=== PATIENT | male | born 1975 | race Caucasian/White ===

== ENCOUNTER 2018-06-23 03:55 | Emergency (ER) | payer OTHER ==
[~2018-06-23] VITALS: Ht 177.8 cm; Wt 103.9 kg
[2018-06-23 03:59] VITALS: BP 156/94
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
--- NOTE | 2018-06-23 04:27 | NUR ---
DR. NEWELL AT BEDSIDE EVALUATING PT.
[2018-06-23] MEDS ORDERED: MORPHINE SULFATE 4 MG/ML SYR IVP ONE (04:30)
[2018-06-23] MEDS ORDERED: ONDANSETRON 4 MG/2 ML VIAL IVP ONE (04:30)
[2018-06-23] MEDS ORDERED: NACL 0.9% 1,000 ML IV ONE (04:30)
[2018-06-23 05:01] LABS: EOSINOPHILS # (AUTO) 0.2 K/uL (0-0.4); HEMATOCRIT 41.8 % (36-52); HEMOGLOBIN 14.2 g/dL (12.0-18.0); LYMPHOCYTES # (AUTO) 1.3 K/uL (2.0-11.5); LYMPHOCYTES % (AUTO) 26.8 % (20.5-51.1); MEAN CORPUSCULAR HEMOGLOBIN 31 pg (27-31); MEAN CORPUSCULAR HGB CONC 34 g/dL (33-37); MEAN CORPUSCULAR VOLUME 92.4 fL (80-94); MONOCYTES # (AUTO) 0.6 K/uL (0.8-1.0); NEUTROPHILS # (AUTO) 2.7 K/uL (1.8-7.7); NEUTROPHILS % (AUTO) 56.2 % (42.2-75.2); PLATELET COUNT (AUTO) 187 K/uL (140-450); RED BLOOD CELL COUNT(AUTO) 4.52 MIL/uL (4.20-6.10); RED CELL DISTRIBUTION WIDTH 13.5 % (11.6-13.7); WHITE BLOOD COUNT (AUTO) 4.8 K/uL (4.8-10.8)
[2018-06-23 05:15] LABS: ALBUMIN 3.8 g/dL (3.4-5.0); ANION GAP 13.3 (8-16); CARBON DIOXIDE 26.5 mmol/L (21-32); POTASSIUM 3.8 mmol/L (3.5-5.1); TOTAL BILIRUBIN 0.4 mg/dL (0.0-1.0)
[2018-06-23 05:18] LABS: PROTHROMBIN TIME 10.6 secs (10.8-13.4)
--- NOTE | 2018-06-23 05:19 | NUR ---
PT STATES "TOO WEAK" TO AMBULATE OR TO TRANSFER AFTER MORPHINE IVP. UNABLE TO PROVIDE URINE AT THIS TIME D/T URINATING ALREADY BEFORE TRIAGE. MADE AWARE.
--- NOTE | 2018-06-23 05:42 | NUR ---
PT TAKEN TO CT
[2018-06-23 05:51] LABS: APPEARANCE,URINE CLEAR (CLEAR); BILIRUBIN,URINE NEGATIVE (NEGATIVE); BLOOD, URINE NEGATIVE (NEGATIVE); COLOR,URINE YELLOW (YELLOW); LEUKOCYTE ESTERASE ,URINE NEGATIVE (NEGATIVE); NITRITE, URINE NEGATIVE (NEGATIVE); UGLUCOSE NEGATIVE (NEGATIVE)
--- NOTE | 2018-06-23 06:02 | NUR ---
PT RETURNED FROM CT AT THIS TIME
[2018-06-23 06:50] VITALS: BP 156/94
--- NOTE | 2018-06-23 06:52 | NUR ---
Patient discharged with v/s stable. Written and verbal after care instructions given and explained. Patient alert, oriented and verbalized understanding of instructions. Ambulatory with steady gait. All questions addressed prior to discharge. ID band removed. Patient advised to follow up with PMD. Rx of COLACE 100MG, NAPROSYN 500MG given. Patient educated on indication of medication including possible reaction and side effects. Opportunity to ask questions provided and answered.
== END 2018-06-23 06:52 | disposition home or self-care (01) ==
LOC: MED 03:55
DX: R10.32 Left lower quadrant pain (principal); M54.2 Cervicalgia; R19.7 Diarrhea, unspecified; Z90.49 Acquired absence of other specified parts of digestive tract
CPT/HCPCS: 36415; 74176; 80053; 81003; 83690; 85025; 85610; 85651; 85730; 86140; 86886; 86900; 86901; 87040; 96374; 96375; 99284; J2270; J2405; J7030

== ENCOUNTER 2019-04-20 19:47 | Emergency (ER) | payer OTHER ==
[~2019-04-20] VITALS: Ht 170.2 cm; Wt 107.0 kg
[2019-04-20 20:24] VITALS: BP 155/118
[2019-04-20] MEDS ORDERED: SODIUM CHLORIDE FLUSH 10 ML SYR IVF STA (20:30)
[2019-04-20] MEDS ORDERED: NITROGLYCERIN 0.4 MG TAB SL STA (20:30)
--- NOTE | 2019-04-20 20:52 | NUR ---
NITRO CHEST PAIN REASSESSMENT AFTER FIRST DOSE : 06/22
--- NOTE | 2019-04-20 20:58 | NUR ---
Dr. Fairchild examining patient.
[2019-04-20] MEDS ORDERED: ONDANSETRON 4 MG/2 ML VIAL IVP ONE (21:10)
[2019-04-20] MEDS ORDERED: MORPHINE SULFATE 4 MG/ML SYR IVP ONE (21:10)
--- NOTE | 2019-04-20 21:10 | NUR ---
43 YEAR OLD MALE COMPLAINS OF ON/OFF SHARP 9/10 RIGHT SIDED CHEST PAIN THAT DOES NOT RADIATE X 1WEEK WHEN HE ARRIVED TO THE ER. PATIENT STATES THAT THE CHEST PAIN IS MUCH MORE REDUCED AFTER MEDICATIONS, AT A 3/10 PAIN NOW. PATIENT DENIED NAUSEA, VOMITTING, AND SHORTNESS OF BREATHE. PATIENT ALERT AND ORIENTED, BREATHING EVEN AND UNLABORED, SKIN WARM AND DRY. PATIENT ON 2L O2 NC, 100% O2 SATURATION, HR 87 NSR, RR 15, BP 147/95. BED IN LOWEST POSITION, LOCKED, BED RAIL UPX1. PMH - DENIES MEDICATIONS - NONE ALLERGIES - NKA
[2019-04-20] MEDS ORDERED: NACL 0.9% 1,000 ML IV ONE (21:15)
[2019-04-20 21:45] LABS: BASOPHILS # (AUTO) 0.1 K/uL (0.00-0.22); BASOPHILS % (AUTO) 1.2 % (0.0-2.0); EOSINOPHILS # (AUTO) 0.1 K/uL (0-0.4); EOSINOPHILS % (AUTO) 2.3 % (0.0-4.0); HEMATOCRIT 46.5 % (36-52); HEMOGLOBIN 15.7 g/dL (12.0-18.0); LYMPHOCYTES # (AUTO) 1.1 K/uL (2.0-11.5); MEAN CORPUSCULAR HEMOGLOBIN 32 pg (27-31); MEAN CORPUSCULAR HGB CONC 34 g/dL (33-37); MEAN CORPUSCULAR VOLUME 95.8 fL (80-94); MONOCYTES # (AUTO) 0.6 K/uL (0.8-1.0); MONOCYTES % (AUTO) 12.7 % (1.7-9.3); NEUTROPHILS # (AUTO) 2.9 K/uL (1.8-7.7); NEUTROPHILS % (AUTO) 60.8 % (42.2-75.2); PLATELET COUNT (AUTO) 209 K/uL (140-450); RED BLOOD CELL COUNT(AUTO) 4.85 MIL/uL (4.20-6.10); RED CELL DISTRIBUTION WIDTH 13.9 % (11.6-13.7); WHITE BLOOD COUNT (AUTO) 4.8 K/uL (4.8-10.8)
--- NOTE | 2019-04-20 21:46 | NUR ---
PATIENT ALERT AND ORIENTED, BREATHING EVEN AND UNLABORED
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
[2019-04-20 22:13] LABS: ALBUMIN 3.8 g/dL (3.4-5.0); ANION GAP 12.7 (8-16); CARBON DIOXIDE 25.3 mmol/L (21-32); CREATININE 0.8 mg/dL (0.7-1.3); TOTAL BILIRUBIN 0.4 mg/dL (0.0-1.0)
[2019-04-20 22:59] VITALS: BP 134/90
== END 2019-04-20 23:01 | disposition home or self-care (01) ==
LOC: MED 19:47
DX: R07.89 Other chest pain (principal); R10.11 Right upper quadrant pain; I10 Essential (primary) hypertension
CPT/HCPCS: 36415; 71045; 80053; 83690; 84484; 85025; 93005; 96374; 96375; 99284; G0482; J2270; J2405; J7030; 99283

== ENCOUNTER 2020-04-14 05:40 | Emergency (ER) | payer OTHER ==
[~2020-04-14] VITALS: Ht 177.8 cm; Wt 95.3 kg
[2020-04-14 05:50] VITALS: BP 155/100
--- NOTE | 2020-04-14 06:14 | NUR ---
urine sample collected and walked to lab.
--- NOTE | 2020-04-14 06:26 | NUR ---
PT EVALUATED AND DISCHARGED BY DR. ELLER. ALL DISCHARGE TEACHING, MEDIACATION ADMINISTRATION AND SIDE EFFECTS GIVEN BY DR. ELLER
== END 2020-04-14 06:26 | disposition home or self-care (01) ==
LOC: MED 05:40
DX: N39.0 Urinary tract infection, site not specified (principal); E11.9 Type 2 diabetes mellitus without complications; I10 Essential (primary) hypertension
CPT/HCPCS: 81002; 99283

== ENCOUNTER 2020-04-18 04:14 | Emergency (ER) | payer OTHER ==
[~2020-04-18] VITALS: Ht 177.8 cm; Wt 99.3 kg
[2020-04-18 04:20] VITALS: BP 168/100
--- NOTE | 2020-04-18 04:23 | NUR ---
TO LOBBY A/W BED AMBULATORY
--- NOTE | 2020-04-18 05:50 | NUR ---
SEEN AND EXAMINED BY MATHEW WITH ORDERS, AND CARRIED OUT.
[2020-04-18] MEDS ORDERED: KETOROLAC 60 MG/2 ML VIAL IM ONE (05:55)
[2020-04-18] MEDS ORDERED: MORPHINE SULFATE 4 MG/ML SYR IM ONE (06:15)
--- NOTE | 2020-04-18 06:26 | NUR ---
MEDICATED PER [facility] ORDER, TOLERATED WELL.
[2020-04-18 06:51] VITALS: BP 168/100
--- NOTE | 2020-04-18 06:51 | NUR ---
Patient discharged with v/s stable. Written and verbal after care instructions given and explained. Patient alert, oriented and verbalized understanding of instructions. Ambulatory with steady gait. All questions addressed prior to discharge. ID band removed. Patient advised to follow up with PMD. Rx of Zofran, Motrin & [place] given. Patient educated on indication of medication including possible reaction and side effects. Opportunity to ask questions provided and answered.
== END 2020-04-18 06:51 | disposition home or self-care (01) ==
LOC: MED 04:14
DX: M54.2 Cervicalgia (principal); E11.65 Type 2 diabetes mellitus with hyperglycemia; I10 Essential (primary) hypertension; Z98.890 Other specified postprocedural states
CPT/HCPCS: 96372; 99283; J2270

== ENCOUNTER 2020-11-07 03:17 | Emergency (ER) | payer OTHER ==
[~2020-11-07] VITALS: Ht 177.8 cm; Wt 93.0 kg
[2020-11-07 03:29] VITALS: BP 141/107
--- NOTE | 2020-11-07 03:33 | NUR ---
To ED bed 04
[2020-11-07] MEDS ORDERED: NACL 0.9% 1,000 ML IV ONE (03:40)
[2020-11-07] MEDS ORDERED: ONDANSETRON 4 MG/2 ML VIAL IVP ONE (03:40)
[2020-11-07] MEDS ORDERED: MORPHINE SULFATE 2 MG/ML SYR IVP ONE (03:40)
--- NOTE | 2020-11-07 03:45 | NUR ---
45/M c/o RUQ abd pain x 5 weeks with hematuria. Pt describes pain as sharp and throbbing with scale of 7/10. Pt denies any n/v/d/fever. pmhx:cholecystectomy, benign lymphoma, HTN, DM nkda
--- NOTE | 2020-11-07 04:00 | NUR ---
blood draw done during iv start. sample sent to lab
--- NOTE | 2020-11-07 04:22 | NUR ---
PT RETURN FROM CT
[2020-11-07 05:17] LABS: BASOPHILS # (AUTO) 0.1 K/uL (0.00-0.22); EOSINOPHILS # (AUTO) 0.1 K/uL (0-0.4); EOSINOPHILS % (AUTO) 2.6 % (0.0-4.0); HEMATOCRIT 41.2 % (36-52); HEMOGLOBIN 14.1 g/dL (12.0-18.0); LYMPHOCYTES % (AUTO) 18.8 % (20.5-51.1); MEAN CORPUSCULAR HEMOGLOBIN 33 pg (27-31); MEAN CORPUSCULAR HGB CONC 34 g/dL (33-37); MEAN CORPUSCULAR VOLUME 97.4 fL (80-94); MONOCYTES # (AUTO) 0.6 K/uL (0.8-1.0); MONOCYTES % (AUTO) 10.5 % (1.7-9.3); NEUTROPHILS # (AUTO) 3.7 K/uL (1.8-7.7); NEUTROPHILS % (AUTO) 67.1 % (42.2-75.2); PLATELET COUNT (AUTO) 154 K/uL (140-450); RED BLOOD CELL COUNT(AUTO) 4.23 MIL/uL (4.20-6.10); RED CELL DISTRIBUTION WIDTH 13.3 % (11.6-13.7); WHITE BLOOD COUNT (AUTO) 5.5 K/uL (4.8-10.8)
[2020-11-07 05:26] LABS: APPEARANCE,URINE HAZY (CLEAR); BILIRUBIN,URINE NEGATIVE (NEGATIVE); BLOOD, URINE 3+ (NEGATIVE); COLOR,URINE BROWN (YELLOW); LEUKOCYTE ESTERASE ,URINE TRACE (NEGATIVE); NITRITE, URINE POSITIVE (NEGATIVE); UGLUCOSE 3+ (NEGATIVE)
[2020-11-07 05:32] LABS: ALBUMIN 3.9 g/dL (3.4-5.0); ANION GAP 12.9 (8-16); CARBON DIOXIDE 25.8 mmol/L (21-32); CREATININE 0.7 mg/dL (0.6-1.3); POTASSIUM 3.7 mmol/L (3.5-5.1); TOTAL BILIRUBIN 0.5 mg/dL (0.0-1.0)
[2020-11-07 05:36] LABS: RBC,URINE TOO NUMEROUS TO COUN /HPF (0-5)
[2020-11-07] MEDS ORDERED: cefTRIAXone 1,000 MG VIAL ONE (06:05)
[2020-11-07] MEDS ORDERED: MORPHINE SULFATE 4 MG/ML SYR IVP ONE (06:05)
[2020-11-07 06:06] LABS: BARBITURATE, URINE NEGATIVE ng/ml (NEG <=200); BENZODIAZEPINE, URINE NEGATIVE ng/mL (NEG <=200); CANNABINOID, URINE NEGATIVE ng/mL (NEG <=50); COCAINE, URINE NEGATIVE ng/mL (NEG <=300); OPIATE, URINE NEGATIVE ng/mL (NEG <=2000); PHENCYCLIDINE SCREEN,URINE NEGATIVE ng/mL (NEG <=25)
--- NOTE | 2020-11-07 07:27 | NUR ---
report given to nga white for continuity of care
--- NOTE | 2020-11-07 07:28 | NUR ---
REPORT RECEIVED FROM ROSALIND SAGASTUME, TRANSFER OF CARE AT THIS TIME.
[2020-11-07 07:29] VITALS: BP 155/105
--- NOTE | 2020-11-07 07:30 | NUR ---
PT AMBULATED TO RESTROOM WITH STEADY GAIT. A/O X4 WITH EVEN AND UNLABORED RESPIRATIONS.
--- NOTE | 2020-11-07 07:51 | NUR ---
Dr. Camacho is evaluating the patient at bedside.
[2020-11-07] MEDS ORDERED: ACET-8386 PO (07:58)
[2020-11-07] MEDS ORDERED: NAPR-1704 PO ×2 (07:58→08:22)
[2020-11-07] MEDS ORDERED: SULF-58 PO ×2 (07:58→08:22)
[2020-11-07] MEDS ORDERED: METF-1022 PO (08:00)
--- NOTE | 2020-11-07 08:15 | NUR ---
Patient discharged with v/s stable. Written and verbal after care instructions ABOUT MEDICATIONS, UTI, AND ABDOMINAL PAIN given and explained. Patient alert, oriented and verbalized understanding of instructions. Ambulatory with steady gait. All questions addressed prior to discharge. ID band removed. Patient advised to follow up with PMD. Rx of METFORMIN HCL, NAPROXEN,AND BACTRIM given. Patient educated on indication of medication including possible reaction and side effects. Opportunity to ask questions provided and answered.
[2020-11-07] MEDS ORDERED: METF1000 PO (08:22)
== END 2020-11-07 08:12 | disposition home or self-care (01) ==
LOC: MED 03:17
DX: N39.0 Urinary tract infection, site not specified (principal); K76.0 Fatty (change of) liver, not elsewhere classified; E11.9 Type 2 diabetes mellitus without complications; F10.10 Alcohol abuse, uncomplicated; F15.90 Other stimulant use, unspecified, uncomplicated; Y90.0 Blood alcohol level of less than 20 mg/100 ml
CPT/HCPCS: 36415; 74176; 80053; 80305; 81001; 83605; 83690; 85025; 87086; 96361; 96365; 96375; 96376; 99284; G0482; J0696; J2270; J2405; J7030